=== PATIENT | male | born 1965 | race Caucasian/White ===

== ENCOUNTER 2018-02-15 10:00 | Day surgery (SDC) | payer BC ==
[2018-02-15] MEDS ORDERED: GENTAMICIN 100 MG/100 ML BAG 100 MG/100 ML BAG IV ONE (10:14)
[2018-02-15] MEDS ORDERED: Ringers Lactate 1,000 ML IV ONE (10:14)
--- NOTE | 2018-02-15 10:30 | RAD REPORT ---
EXAM DESCRIPTION: RAD - Abdomen 1 View (KUB) - 02/15/2018 9:54 am CLINICAL HISTORY: Preop examination, pending lithotripsy COMPARISON: CT study February 09 FINDINGS: Previously detailed 10-12 mm calcification left UPJ still present. This is positioned betw een the L2 and L3 transverse processes. Bilateral renal calculi seen on the CT study are more difficu lt to see on plain film. A ureteral calculus is not confirmed. No obstruction, free air or pneumatosis. Bowel gas pattern is nonspecific. No significant bony findings IMPRESSION: Approximately 10-12 mm calcification left UPJ. This has not change from the CT study. Stone is positioned between the left-side transverse processes of L2 and L3.
[2018-02-15] MEDS ORDERED: FENTANYL CITR 100 MCG/2 ML ONE (10:56)
[2018-02-15] MEDS ORDERED: MIDAZOLAM HCL 2 MG/2 ML INJ ONE (10:56)
[2018-02-15] MEDS ORDERED: PROPOFOL 200 MG/20 ML VIAL IV ONE (10:56)
[2018-02-15] MEDS ORDERED: KETOROLAC 30 MG/ML INJ ONE (11:36)
== END 2018-02-15 14:05 | disposition home or self-care (01) ==
LOC: OR 10:00
PROVIDERS: ATTEND Urology
PROC: 0TF4XZZ Fragmentation in Left Kidney Pelvis, External Approach (ICD-10-PCS; principal; 2018-02-15 12:30)
DX: N20.0 Calculus of kidney (principal)
CPT/HCPCS: 50590; 74018; J1580; J2250; J3010

== ENCOUNTER 2021-06-24 10:29 | Day surgery (SDC) | payer BC ==
[2021-06-20 10:24] LABS: Protime INR 1.07
[2021-06-20 10:26] LABS: Absolute Lymphocytes (CBC) 1.6 K/uL (0.7-4.9); Hematocrit 46.8 % (39.6-49.0); MPV 9.8 fL (7.6-11.3); RBC Red Blood Cell Count 5.33 M/uL (4.33-5.43)
[2021-06-20 10:37] LABS: Potassium 3.9 mmol/L (3.5-5.1)
--- NOTE | 2021-06-20 11:34 | RAD REPORT ---
EXAM DESCRIPTION: RAD - Chest Pa And Lat (2 Views) - 06/20/2021 10:07 am CLINICAL HISTORY: Pre Op pending urology surgery COMPARISON: Two view chest 02/27/2020 TECHNIQUE: Frontal and lateral views of the chest were obtained. FINDINGS: The lungs are clear of an acute mass or infiltrate. Hilar regions within normal limits and stable. Interstitial pattern also stable. Heart size is normal and central vasculature is within normal limits. No pleural effusion or pneu mothorax seen. No acute bony finding noted. No aortic abnormality. IMPRESSION: No acute cardiopulmonary process. No significant change from comparison study.
--- NOTE | 2021-06-21 13:49 | EKG ---
Test Date: 2021-06-20 Test Time: 09:43:05 Cable Maintainer: STEVAN MEASUREMENT RESULTS: Intervals: Rate: 77 ME: 154 QRSD: 102 QT: 382 QTc: 432 [place]: P: 54 ME: 154 QRS: 0 T: 38 INTERPRETIVE STATEMENTS: Normal sinus rhythm Possible Inferior infarct, age undetermined Abnormal ECG Compared to ECG 02/10/2018 13:14:55 Myocardial infarct finding now present Sinus arrhythmia no longer present Incomplete right bundle-branch block no longer present Electronically Signed On 06-21-21 13:47:40 PLANNING CONSULTANT by Hardeep Somers
[~2021-06-24 10:29] MED LIST: AMPICILLIN SODIUM 2 GM in NA CHLORIDE 0.9% 100 ML IVPB SCH; Gentamicin Inj 240 MG in NA CHLORIDE 0.9% 100 ML IV SCH
[2021-06-24] MEDS ORDERED: Ringers Lactate 1,000 ML IV ONE (11:02)
[2021-06-24] MEDS ORDERED: ACETAMINOPHEN 500 MG TAB ONE (13:10)
[2021-06-24] MEDS ORDERED: CELECOXIB 100 MG CAPSULE ONE (13:10)
[2021-06-24] MEDS ORDERED: FENTANYL CITR 100 MCG/2 ML ONE ×2 (14:32→15:58)
[2021-06-24] MEDS ORDERED: propofoL 200 MG/20 ML VIAL IV ONE ×2 (14:32→15:58)
[2021-06-24] MEDS ORDERED: LIDOCAINE 1% MPF 5 ML VIAL ONE ×2 (14:33→15:59)
[2021-06-24] MEDS ORDERED: MIDAZOLAM HCL 2 MG/2 ML INJ ONE ×2 (14:33→15:59)
[2021-06-24] MEDS ORDERED: ONDANSETRON 4 MG/2 ML VIAL ONE ×2 (14:33→15:59)
[2021-06-24] MEDS ORDERED: PHENAZOPYRIDINE 100MG TAB PO ONE ×2 (17:26→17:50)
[2021-06-24] MEDS ORDERED: CODEINE 30MG/APAP 300MG TAB PO PRN (17:26)
[2021-06-24] MEDS ORDERED: CODEINE 30MG/APAP 300MG TAB ONE (17:50)
[2021-06-24 18:45] VITALS: BP 133/86; TEMP 98.4; O2SAT 98
--- NOTE | 2021-06-25 00:02 | OP ---
Date of Procedure: 06/24/2021 Surgeon: EDITA MAYA Preoperative Diagnosis: Primary bladder neck dysfunction/benign prostatic hyperplasia with obstructi on/lower urinary tract symptoms. Postoperative Diagnosis: Primary bladder neck dysfunction/benign prostatic hyperplasia with obstruct ion/lower urinary tract symptoms. Principal Procedure: Transurethral incision of the bladder neck/channel TURP. Indication For Procedure: Mr. Henry presented to the [facility]rology Clinic with obstructive lower urinary symptoms and irritative symptoms as a result. Preoperative cystoscopy revealed the presence of a sig nificantly elevated bladder neck and median bar without significant lateral lobar hypertrophy or intr avesical projection causing obstruction. As a result, he was counseled and elected surgical therapy. Procedure In Detail: The patient was consented in the preoperative holding area before being transfe rred to the operative suite, where general anesthesia was induced. He was given ampicillin and genta micin IV antimicrobial prophylaxis and pneumo boots were provided for DVT prophylaxis. He was placed in the lithotomy position, padded and secured to the table appropriately. His genitalia were preppe d using Hibiclens and draped in standard fashion. The case was begun using urethral sounds to dilate the meatus and fossa navicularis to 30-Kenyan. Then, using the visual obturator and a 26-Kenyan Elaine mpus resectoscope, the urethra was traversed and the bladder entered. Of note, in the proximal bulba r urethra, there was some narrowing suggestive of potential for circumferential stricture disease. T his was surpassed using the scope, and the verumontanum was encountered and the prostatic urethra tra versed. As had previously been noted, there was significant elevation of the median bar with a high and tight bladder neck the result of that bar. As a result, once entered into the bladder, I identif ied the ureteral orifices bilaterally. I began resecting the median bar down to the level of the obey dder neck and the trigone. I then continued the resection of that median bar down to the level of th e verumontanum. Any tight component of the bladder neck posterolaterally on each side was similarly resected until the posterior fossa was widely patent and even with the bladder neck. I then removed all prostate chips from within his bladder and carefully fulgurated any bleeding vessels. Once hemos tatic with the bladder decompressed and all chips removed, I then left his bladder full and placed a 20-Kenyan 2-way Spicer catheter. 30 cc of sterile water was placed in the balloon, and the patient wa s awakened from general anesthesia. He was then transferred to a stretcher and then to the recovery room in good condition. Complications: None. Discharge Disposition: He may remove the urethral catheter tomorrow morning at home if he is comfort able doing so or alternatively, he may come by the [facility]rology [facility] on to have the catheter re moved. I will send him with a prescription for Bactrim Double Strength tablets for the next 3 days a ntimicrobial prophylaxis. RUFINO/MODL Voice ID: [id number] Report ID: [id number]
== END 2021-06-24 18:25 | disposition home or self-care (01) ==
LOC: OR 10:29
PROVIDERS: ATTEND Urology
PROC: 0VT08ZZ Resection of Prostate, Via Natural or Artificial Opening Endoscopic (ICD-10-PCS; principal; 2021-06-24 12:00)
DX: N40.1 Benign prostatic hyperplasia with lower urinary tract symptoms (principal); R10.2 Pelvic and perineal pain; N20.0 Calculus of kidney; N31.9 Neuromuscular dysfunction of bladder, unspecified; Z80.42 Family history of malignant neoplasm of prostate; Z20.822 Contact with and (suspected) exposure to COVID-19
CPT/HCPCS: 93005; 87088; 85025; 87086; 80048; 36415; 85610; 88305; 71046; 52630; U0002; J2704; J1580; J2250; J3010; J7120; J2405; J0290

== ENCOUNTER 2022-04-21 09:37 | Day surgery (SDC) | payer BC ==
[2022-04-16 15:12] LABS: Absolute Lymphocytes (CBC) 1.7 K/uL (0.7-4.9); Hematocrit 46.2 % (39.6-49.0); Lymphocytes % 28.8 % (15.3-44.8); MCV 88.5 fL (80-100); MPV 10.4 fL (7.6-11.3); RBC Red Blood Cell Count 5.22 M/uL (4.33-5.43)
[2022-04-16 15:13] LABS: Protime INR 1.04
[2022-04-16 15:45] LABS: Potassium 3.3 mmol/L (3.5-5.1)
--- NOTE | 2022-04-20 12:18 | EKG ---
Test Date: 2022-04-16 Test Time: 13:45:31 Fire Support Man: TOMEKA MEASUREMENT RESULTS: Intervals: Rate: 91 RI: 158 QRSD: 94 QT: 352 QTc: 432 [place]: P: 61 RI: 158 QRS: 64 T: 69 INTERPRETIVE STATEMENTS: Normal sinus rhythm Normal ECG Compared to ECG 06/20/2021 09:43:05 Myocardial infarct finding no longer present Electronically Signed On 04-20-22 12:14:08 GARBAGE COLLECTOR by Korey Reyes
[2022-04-21] MEDS ORDERED: CEFAZOLIN SODIUM 2 GM/VIAL ONE (09:54)
[2022-04-21] MEDS ORDERED: Ringers Lactate 1,000 ML IV ONE (09:54)
[2022-04-21] MEDS ORDERED: FENTANYL CITR 100 MCG/2 ML ONE (14:41)
[2022-04-21] MEDS ORDERED: propofoL 200 MG/20 ML VIAL IV ONE (14:41)
[2022-04-21] MEDS ORDERED: LIDOCAINE 1% MPF 5 ML VIAL ONE (14:42)
[2022-04-21] MEDS ORDERED: MIDAZOLAM HCL 2 MG/2 ML INJ ONE (14:42)
[2022-04-21] MEDS ORDERED: NS 0.9% VIAL 10 ML ONE (14:42)
[2022-04-21] MEDS ORDERED: ONDANSETRON 4 MG/2 ML VIAL ONE (14:57)
[2022-04-21] MEDS ORDERED: KETOROLAC 30 MG/ML INJ ONE (14:57)
[2022-04-21] MEDS ORDERED: NA CHLORIDE 0.9% 1,000 ML ONE (15:33)
[2022-04-21] MEDS: HYDROMORPHONE HCL 1 MG/ML INJ ONE ×2 (16:37→16:46)
[2022-04-21] MEDS ORDERED: PHENAZOPYRIDINE 100MG TAB PO ONE (16:38)
[2022-04-21] MEDS ORDERED: CODEINE 30MG/APAP 300MG TAB PO PRN (16:38)
[2022-04-21 16:48] VITALS: TEMP 96.8
[2022-04-21 16:59] VITALS: BP 122/72; O2SAT 96
[2022-04-21] MEDS ORDERED: CODEINE 30MG/APAP 300MG TAB ONE (17:22)
--- NOTE | 2022-04-22 09:18 | OP ---
Surgeon: EDITA MAYA Preoperative Diagnoses: 1.Fossa navicularis with urethral papillary lesions. 2.BPH with obstructive lower urinary tract symptoms. Postoperative Diagnoses: 1.Fossa navicularis with urethral papillary lesions. 2.BPH with obstructive lower urinary tract symptoms. Principal Procedures: 1.Cystourethroscopy. 2.Urethral cold cup biopsies. 3.Laser fulguration of urethral lesions. 4.Prostatic urethral lift with 5 implants placed. Indication For Procedure: Mr. Henry presented to the Urology Clinic having previously undergone res ection of the bladder neck with a widely patent fossa in that location, but persistent bothersome obs tructive LUTS. Repeat cystoscopic evaluation revealed patency of the bladder neck, but some residual anterolateral lobar overhang and hypertrophy intruding into the prostatic urethral lumen, potentiall y causing obstruction. As a result, he was recommended for prostatic urethral lift to manage that ob struction. At the time of that cystoscopic evaluation, incidentally were observed, urethral lesions within the distal urethra at the level of the fossa navicularis. Given the appearance suspicious for potential squamous cell malignancy, biopsy and fulguration were recommended. Procedure In Detail: The patient was consented in the preoperative holding area before being transfe rred to operative suite where general anesthesia was induced. He was given Ancef 2 g IV antimicrobia l prophylaxis and Pneumoboots were provided for DVT prophylaxis. He was placed in the lithotomy posi tion, padded and secured to the table appropriately. His genitalia were prepped with Hibiclens and h e was draped in standard fashion. The case was begun using a 22-Trinidadian rigid cystoscope to enter the meatus and immediately were visible within the fossa navicularis, papillary urothelial lesions. The se were multifocal within the right side of the urethra at the 10 to 11 o'clock position with additio nal lesions at around the 6 to 7 o'clock position and at the 1 to 2 o'clock position on the left side . As a result, I utilized cold cup biopsy forceps to remove the majority of those lesions and send t he samples for pathologic analysis. I then employed a laser fiber to fulgurate the base of the lesio ns removed as well as any small residual papillary lesions more difficult to target with a biopsy giv en the anatomic localization of the tumor. With great difficulty, fulguration was not really achieva ble using the rigid cystoscope. Attempts with the flexible cystoscope were similarly not feasible, b ut then I utilized the semi rigid ureteroscope and was successfully able to navigate the tip and the laser fiber with irrigation, sufficient to visualize each of the lesions discretely and fulgurate the m, removing them from the tissue at the base as well as fulgurating any base bleeding tissue from the prior biopsy sites. Once this was performed, the area was free of any papillary lesion and the riley yessica of the urethra was surveyed cystoscopically to verify that absence. I then traversed the ureth ra and into the bladder to decompress it completely. Of note, to provide additional exposure and tra ction, 2 stay sutures of 4-0 PDS were applied to splay the urethral meatus, sufficient to allow tract ion on the phallus as well as of visualization as deep into the fossa as possible. Unfortunately, it was not directly visible from the direct visualization open standpoint. Then, utilizing the 20-Trinidadian UroLift bridge, the urethra was traversed and the bladder entered. As had been previously noted, there was clear evidence of resection at the bladder neck with some residu al anterolateral overhang emanating from the left side and some mild residual apical lateral lobar hy pertrophy. As a result, the tissue within the left lateral anterior wall of the prostate was targete d initially using the UL2 delivery device. Positioned approximately 1.5 cm distal to the bladder nec k, the first device was utilized by deploying the needle through the prostate. Additional compressio n was performed delivering the needle all the way through the prostate and seeding a capsular tab out side the prostate capsule. Additional compression was performed and further tensioning before the sc ope was angled back towards the midline and advanced 2-3 mm until the cystoscopic verification of the monofilament centered in the Delivery [place] was evident. At this point, the 4th pull of the trigger w as performed and the urethral in piece was then affixed to the monofilament, thereby tailoring the si ze of the implant. Excess filament was severed and the delivery device was readvanced into the bladd er. I then surveyed the channel created and while there was an evident anterolateral lift, there was still some residual apical and anterior tissue. As a result, an additional implant was placed at th e verumontanum on the left and a 3rd was placed at the verumontanum on the right. Repeat survey of t he prostatic urethra did still reveal some anterolateral overhang, largely emanating from the left si de, so a 4th implant was placed in a stack fashion at the level of the bladder neck further elevating the anterolateral tissue there. Repeat survey using the visual obturator did reveal a mild degree o f residual anterior only overhang. After surveying the site the tissue was coming from, it was clear that with some more anterior positioning of a 5th implant, that bladder neck anteriorly could be jelly vated even further. So, a 5th implant was placed even more anteriorly and did nicely create a contin uous channel from the verumontanum into the bladder neck completely unobstructed. As a result, I the n surveyed the bladder neck region to ensure the absence of any monofilament or capsular tabs within the bladder lumen, and once none were noted, and all of the capsular tabs were seated within the pros tatic fossa, even if within a cm of the bladder neck, the UroLift portion of the case was concluded. I then left his bladder full after confirming the continuous anterior channel with the bladder compl etely decompressed, and then I placed an 18-Trinidadian Spicer catheter into his bladder with ease after re moving the UroLift bridge. The stay sutures previously place were removed and pressure on the glans was applied to cease any oozing from the glans. The catheter was connected to a leg bag and the adrián ent was taken out of the lithotomy position before being transferred to a stretcher and then to the r ecovery room in good condition. Complications: None. Discharge Disposition: He will keep the catheter for the next 3 days and complete a voiding trial at home on Wednesday morning. Subsequent followup should be established in 2 weeks' time to discuss the r esults of the pathology. RUFINO/MODL Voice ID: [id number] Report ID: [id number]
== END 2022-04-21 18:15 | disposition home or self-care (01) ==
LOC: OR 09:37
PROVIDERS: ATTEND Urology
PROC: 0T7D8DZ Dilation of Urethra with Intraluminal Device, Via Natural or Artificial Opening Endoscopic (ICD-10-PCS; principal; 2022-04-21 11:15)
PROC: 0TBD8ZX Excision of Urethra, Via Natural or Artificial Opening Endoscopic, Diagnostic (ICD-10-PCS; 2022-04-21 11:15)
DX: D41.4 Neoplasm of uncertain behavior of bladder (principal); N40.1 Benign prostatic hyperplasia with lower urinary tract symptoms; N36.9 Urethral disorder, unspecified; E29.1 Testicular hypofunction; Z88.1 Allergy status to other antibiotic agents
CPT/HCPCS: 52441; 52442 ×4; 52204; 93005; 85025; 87086; 80048; 36415; 85610; 88305; J2704; J2001; J2250; J3010; A4216; J1170; J7120; J7030; J2405; 87088